=== PATIENT | male | born 1975 | race Caucasian/White ===

== ENCOUNTER 2022-01-11 10:15 | Observation (INO) | payer BC, SELFPAY ==
[2022-01-11] VITALS (9 sets, daily range): BP systolic 134–179; BP diastolic 107–125; PULSE 77–103; RESP 18–26; TEMP 36.6–36.8; O2SAT 96–99; BMI 25.1; BMI 25.4
--- NOTE | 2022-01-11 10:37 | NURSING ---
NO OLD EKGS
--- NOTE | 2022-01-11 10:51 | EKG12_ITS ---
Test Reason : CP Blood Pressure : / mmHG Vent. Rate : 082 BPM Atrial Rate : 082 BPM P-R Int : 170 ms QRS Dur : 102 ms QT Int : 404 ms P-R-T Axes : 051 000 042 degrees QTc Int : 472 ms Normal sinus rhythm Minimal voltage criteria for LVH, may be normal variant ( Babcock product ) Borderline ECG Confirmed by KAEL REAVES, MICHOACANO ([id number]), associate editor ELYSSA PULLIAM ([id number]) on 01/13/2022 12:50:22 PM Referred By: Pina Confirmed By:MICHOACANO SCRUGGS MD
[2022-01-11] MEDS: Aspirin 81 MG TAB.CHEW 324 MG PO (10:59)
--- NOTE | 2022-01-11 11:00 | RAD_ITS ---
STUDY: X-RAY CHEST REASON FOR EXAM: Male, 46 years old. Chest pain TECHNIQUE: Single AP portable view of the chest. COMPARISON: None. FINDINGS: EKG electrodes are seen. The lungs are clear and expanded. There is no demonstrated pleural abnormality. Normal size heart. Normal mediastinum and juan. Normal visualized pulmonary arteries. Normal visualized aortic arch and descending thoracic aorta. Normal visualized thoracic spine. Normal visualized ribs, clavicles, and shoulders. There is no demonstrated abnormality of the visualized soft tissue structures of the upper abdomen. RAD/Chest 1 View (Portable) IMPRESSION: Normal x-ray examination of the chest. Electronically Signed: Brayden Lo MD at 11:11 EDT ,
[2022-01-11 11:07] LABS: Absolute Lymphocyte Count 1.22 X10^3/uL (0.83-4.51); Absolute Neutrophil Count 3.8 X10^3/uL (2.0-7.7); Basophil# 0.04 X10^3/uL; Basophil% 0.7 % (0-1); Eosinophil# 0.27 X10^3/uL; Eosinophils% 4.5 % (0-5); Hematocrit 44.3 % (40-54); Hemoglobin 16.3 g/dL (13.0-16.5); Lymphocyte # 1.22 X10^3/ul (0.83-4.51); Lymphocyte % 20.3 % (19-41); Mean Corp Hgb Conc 36.8 g/dL (32-36); Mean Corpuscular Hgb 34.7 pg (27.0-32.0); Mean Corpuscular Volume 94.3 fL (80-94); Mean Platelet Vol. 12.1 fl (6.2-12.0); Monocyte# 0.71 X10^3/uL; Monocyte% 11.8 % (0-10); NRBC Flagged by Analyzer 0 % (0-5); Neutrophil # 3.75 X10^3/uL (2.7-7.7); Neutrophil % 62.4 % (47-70); Platelet Count 118 K/mm3 (150-450); RBC Distribution Width CV 15.2 % (11.6-14.6); RBC Distribution Width SD 51.3 fl (35.1-43.9)
[2022-01-11 11:32] LABS: Anion Gap 9 (5-15); BUN 12 mg/dL (7-18); BUN/Creat Ratio 12.3 RATIO (10-20); Calcium,Total 9.9 mg/dL (8.5-10.1); Chloride 101 mmol/L (98-107); Creatinine, Serum 0.97 mg/dL (0.70-1.30); EST Glomerular Filtration Rate 89 mL/min (>60); Est Glom Filt Rate - Afr Amer 108 mL/min (>60); Estimated Creatinine Clearance 112.99 ml/min; Glucose 129 mg/dL (74-106); Potassium 3.7 mmol/L (3.5-5.1); Sodium Level 135 mmol/L (136-145); Troponin-I HS (w/2H Reflex) 17 pg/mL (3.0-78.0)
--- NOTE | 2022-01-11 12:43 | EDS_ITS ---
HPI History of Present Illness Chief Complaint: Chest Pain Informant: patient Onset/Context/Timing Onset: Days Activity at onset: gradual Timing: Intermittent Quality: Positive for Tightness Location: Left Parasternal Current Severity: Mild Maximum Severity: Moderate Narrative Narrative: Patient presents secondary to intermittent chest pain. Has been having intermittent chest pain to the left chest over the past couple days. It is not necessarily worsened with exertion. He denies shortness of breath or diaphoresis. Patient states that he has been having trouble with lightheadedness and dizziness since August when he was diagnosed with bronchitis. He had an echocardiogram at the [facility] recently which was abnormal. He was referred to cardiology and has an appointment in January. He states he was told that if he develops chest pain he should present to the emergency room. I was able to get a copy of the patient's echocardiogram results. The left ventricle is severely dilated. EF is estimated to be 34%. The right ventricle is normal in size. [facility] Medical History HTN (hypertension) Home Medications amlodipine 10 mg tablet 1 tab PO DAILY 01/11/22 [History Last Taken Unknown] losartan 100 mg-hydrochlorothiazide 25 mg tablet 1 tab PO DAILY 01/11/22 [H istory Last Taken Unknown] metformin 500 mg tablet,extended release 24 hr 1 tab PO DAILY 01/11/22 [History Last Taken Unknown] metoprolol succinate 50 mg tablet,extended release 24 hr 1 tab PO DAILY 01/11/22 [History Last Taken Unknown] Allergy/AdvReac Type Severity Reaction Status Date / Time lisinopril Allergy Other Verified 01/11/22 10:18 Social History Smoking Status: Current every day smoker tobacco type: cigarettes ROS ROS ED Constitutional Constitutional ED: Denies chills or fever(s) Eyes Eyes: Denies change in vision or discharge from eye(s) ENT ENT ED: Denies discharge from eye(s), rhinorrhea or sore throat Cardiovascular Cardiovascular: Reports chest pain; Denies palpitations Respiratory/Chest Respiratory/Chest: Denies cough or dyspnea Gastrointestinal Gastrointestinal: Denies abdominal pain, diarrhea, nausea or vomiting Genitourinary Genitourinary ED: Denies difficulty urinating or dysuria Musculoskeletal Musculoskeletal: Denies back pain or extremity pain Integumentary Denies Abrasions or rash Neurologic Neurologic: Denies headache(s) or weakness Allergic/Immunologic Allergic/Immunologic ED: Denies lip swelling or urticaria EXAM Physical Exam Const Vital Signs: 01/11/22 10:16 01/11/22 10:33 01/11/22 10:51 Temperature 97.9 F Temperature Source Temporal Pulse Rate 96 Respiratory Rate 18 Respiratory Effort Normal Non-Labored Blood Pressure 179/116 H Blood Pressure Mean 137 Pulse Ox 99 Oxygen Delivery Method Room Air Room Air 01/11/22 11:16 Temperature Temperature Source Pulse Rate 84 Respiratory Rate 26 H Respiratory Effort Blood Pressure 146/112 H Blood Pressure Mean 123 Pulse Ox 96 Oxygen Delivery Method Room Air Positive well nourished and well developed General Appearance ED: well developed HEENT Reports normocephalic and head/scalp atraumatic Eyes PERRL and EOMs intact bilaterally Neck supple Chest Wall inspection of chest normal and palpation of chest normal Resp normal respiratory effort and clear to auscultation bilaterally Cardio regular rate and regular rhythm GI normal to inspection, nondistended, normoactive bowel sounds Palpation: soft Back/Spine no CVA tenderness Extremity normal to inspection Neuro oriented x3 and no sensory deficits noted Sensorium / Orientation: alert Motor Exam: strength 5/5 throughout Psych mental status grossly normal Skin no rashes or lesions noted Heart Score History: Slightly/Non-Suspicious ECG: Normal Age: </= 45 years Risk Factors: 1 or 2 Risk Factors Troponin: </= Normal Limit Score: 1 MDM MDM MDM Narrative Medical decision making narrative: Patient was given aspirin on arrival. Lab work, EKG, chest x-ray obtained. Lab Data Attestation: I reviewed the patient's lab results. Labs: Laboratory Results - last 24 hr 01/11/22 01/11/22 10:28 10:28 WBC 6.0 RBC 4.70 Hgb 16.3 Hct 44.3 MCV 94.3 H MCH 34.7 H MCHC 36.8 H RDW Std Deviation 51.3 H RDW Coeff of Mary Kate 15.2 H Plt Count 118 L MPV 12.1 H Immature Gran % (Auto) 0.300 Neut % (Auto) 62.4 Lymph % (Auto) 20.3 Sandoval % (Auto) 11.8 H Eos % (Auto) 4.5 Baso % (Auto) 0.7 Absolute Neuts (auto) 3.8 Absolute Lymphs (auto) 1.22 Nucleated RBC % 0 Sodium 135 L Potassium 3.7 Chloride 101 Carbon Dioxide 25.0 Anion Gap 9 BUN 12 Creatinine 0.97 Estim Creat Clear Calc 112.99 Est GFR (MDRD) Af Amer 108 Est GFR (MDRD) Non-Af 89 BUN/Creatinine Ratio 12.3 Glucose 129 H Calcium 9.9 Troponin I High Sens 17 Radiography Chest X-Ray - ED: 1 View, Read by ED Physician, Normal, Heart, Lungs and Mediastinum Diagnostic Testing: Clinical Impression(s) from Imaging Studies Chest X-Ray 01/11/22 11:00 IMPRESSION: Normal x-ray examination of the chest. Electronically Signed: Brayden Lo MD at 11:11 EDT , EKG Initial EKG: Attestation: I personally reviewed and interpreted this EKG as follows: Interpretation: Sinus Rhythm (Sinus 82 with no acute ischemia.) Treatment and Re-Evaluation Narrative: On repeat evaluation patient resting comfortably. Chest x-ray per my interpretation is unremarkable. Radiology interpretation reviewed. He EKG reveals no acute ischemia. Lab work unremarkable with a troponin of 17. Given the patient's symptoms and abnormal recent echocardiogram I did speak Dr. Sands. He feels the conservative route of treatment would be to admit the patient for cardiac cath. This would further identify whether his poor LV function is secondary to cardiac disease or nonischemic disease. Patient is in agreement with this plan and I will speak with the hospitalist. Discharge Plan Triage Chief Complaint: Chest Pain ED Provider: Cinthia Heller Dx/Rx/DC Orders Clinical Impression: Chest pain, Abnormal echocardiogram Prescriptions: No Action metoprolol succinate 50 mg tablet extended release 24 hr 1 tab PO DAILY Label Comments: TAKE 1 TABLET BY MOUTH EVERY DAY losartan-hydrochlorothiazide 100-25 mg tablet 1 tab PO DAILY Label Comments: TAKE 1 TABLET BY MOUTH EVERY DAY amlodipine 10 mg tablet 1 tab PO DAILY Label Comments: TAKE 1 TABLET BY MOUTH EVERY DAY metformin 500 mg tablet extended release 24 hr 1 tab PO DAILY Label Comments: TAKE 1 TABLET BY MOUTH EVERY DAY WITH BREAKFAST Primary Care Provider: Shamir Cha Referrals: Shamir Cha MD [Primary Care Provider] - Disposition Disposition: Acute Care Hospital [facility]
[2022-01-11 13:02] LABS: Reflex Troponin-HS? (from REC) Y
--- NOTE | 2022-01-11 13:09 | HP.PCM.HOS_ITS ---
[facility] - General General Date of Admission: 01/11/22 Date of Service: 01/11/22 Chief Complaint: chest pain. [facility] Narrative ELIZABETH LAU, is a 46 M who presents with a complaint of chest pain. Patient says he had been having intermittent chest pain for a few days prior to admission, with associated lightheadedness and dizziness. He was diagnosed wih bronchitis in August 2021, and subsequently had an echo as ordered by his PCP. He was told the echo was abnormal and he was referred to cardiology. The earliest appointment he got was in January 2022. He was however told by his PCP that if he developed chest pain, he should go to the ED. He subsequently started developing the above mentioned symptoms, so was came to the ED. He denied any palpitations, fever, chills, nausea, vomiting or diarrhea. Review of systems is otherwise negative. 2D echo showed EF of 34% and severely dilated LV, and RV was normal. [facility] Medical History HTN (hypertension) Home Medications amlodipine 10 mg tablet 1 tab PO DAILY 01/11/22 [History Last Taken Unknown] losartan 100 mg-hydrochlorothiazide 25 mg tablet 1 tab PO DAILY 01/11/22 [History Last Taken Unknown] metformin 500 mg tablet,extended release 24 hr 1 tab PO DAILY 01/11/22 [History Last Taken Unknown] metoprolol succinate 50 mg tablet,extended release 24 hr 1 tab PO DAILY 01/11/22 [History Last Taken Unknown] Allergy/AdvReac Type Severity Reaction Status Date / Time lisinopril Allergy Other Verified 01/11/22 10:18 Social History Smoking Status: Current every day smoker tobacco type: cigarettes ROS Review of Systems ROS Unobtainable: Denies due to encephalopathy Constitutional Constitutional: Denies anorexia, chills, fatigue, fever(s), malaise or weakness Eyes Eyes: Denies change in vision ENT HEENT: Denies dysphagia, headache(s), nasal congestion, nasal discharge or sinus pressure Cardiovascular Cardiovascular: Reports chest pain and lightheadedness; Denies dyspnea on exertion, edema, orthopnea, palpitations, paroxysmal nocturnal dyspnea, rapid heart rate or syncope Respiratory/Chest Respiratory/Chest: Denies cough, dyspnea, productive cough, shortness of breath at rest, shortness of breath with exertion or wheezing Gastrointestinal Gastrointestinal: Reports constipation; Denies abdominal pain, diarrhea, dyspepsia, nausea or vomiting Genitourinary Genitourinary: Denies burning urination or dysuria Musculoskeletal Musculoskeletal: Denies arthralgias Neurologic Neurologic: Denies confusion, dizziness, focal weakness, headache(s), seizure- like activity, syncope or tingling Psychiatric Psychiatric: Denies anxiety or depression Hematologic/Lymphatic Hematologic/Lymphatic: Denies anemia Vital Signs Vital Signs Vital Signs: 01/11/22 10:16 01/11/22 10:33 01/11/22 10:51 Temperature 97.9 F Temperature Source Temporal Pulse Rate 96 Respiratory Rate 18 Respiratory Effort Normal Non-Labored Blood Pressure 179/116 H Blood Pressure Mean 137 Pulse Ox 99 Oxygen Delivery Method Room Air Room Air 01/11/22 11:16 Temperature Temperature Source Pulse Rate 84 Respiratory Rate 26 H Respiratory Effort Blood Pressure 146/112 H Blood Pressure Mean 123 Pulse Ox 96 Oxygen Delivery Method Room Air Weight Weight: 196 lb Body Mass Index (BMI) 25.1 Physical Exam Const alert, oriented x3 and no apparent distress General Appearance: cooperative HEENT normocephalic, head/scalp atraumatic, hearing grossly normal bilaterally and moist oral mucous membranes Mouth: oral and palatal mucosa normal Eyes PERRL, EOMs intact bilaterally and conjunctivae normal Neck no lymphadenopathy and supple Resp normal respiratory effort, no retractions, no use of accessory muscles and clear to auscultation bilaterally Cardio regular rate, regular rhythm, S1 normal heart sound, S2 normal heart sound and no murmurs GI normal to inspection, nondistended, normoactive bowel sounds, soft to palpation, non-tender and non-distended Auscultation: hyperactive bowel sounds Extremity normal to inspection, full ROM and no clubbing, cyanosis or edema Neuro oriented x3, CN's II-XII intact bilaterally and moves all extremities Sensorium / Orientation: awake and alert Coordination / Balance: [id number] test normal Motor Exam: strength 5/5 throughout Psych affect normal Results Lab / Micro Data Result Diagrams: 01/11/22 10:28 01/11/22 10:28 Labs: Laboratory Results - last 24 hr 01/11/22 10:28: WBC 6.0, RBC 4.70, Hgb 16.3, Hct 44.3, MCV 94.3 H, MCH 34.7 H, MCHC 36.8 H, RDW Std Deviation 51.3 H, RDW Coeff of Mary Kate 15.2 H, Plt Count 118 L, MPV 12.1 H, Immature Gran % (Auto) 0.300, Neut % (Auto) 62.4, Lymph % (Auto) 20. 3, Dawson % (Auto) 11.8 H, Eos % (Auto) 4.5, Baso % (Auto) 0.7, Absolute Neuts (auto) 3.8, Absolute Lymphs (auto) 1.22, Nucleated RBC % 0 01/11/22 10:28: Sodium 135 L, Potassium 3.7, Chloride 101, Carbon Dioxide 25.0, Anion Gap 9, BUN 12, Creatinine 0.97, Estim Creat Clear Calc 112.99, Est GFR (MDRD) Af Amer 108, Est GFR (MDRD) Non-Af 89, BUN/Creatinine Ratio 12.3, Glucose 129 H, Calcium 9.9, Troponin I High Sens 17 Radiology Impression Chest X-Ray 01/11/22 11:00 IMPRESSION: Normal x-ray examination of the chest. Electronically Signed: Brayden Lo MD at 11:11 EDT , Assessment & Plan Assessment/Plan (1) Chest pain: PLAN: Plan #Chest pain to rule out ACS * admit to PCU with telemetry * cycle troponins * PO aspirin 81mg daily * 2D echo showed EF of 34% with severely dilated LV * check lipid panel and A1C * consult cardiology * #Hypertension: on amlodipine, losartan and HCTZ #Diabetes mellitus: hold metformin as he will likely have cardiac cath tomorrow. ISS. Accuchecks ACHS DVT prophylaxis: lovenox Code status; full code * Patient counseled extensively about different types of CODE STATUS including full code, DNR CCA and DNR CCA. Patient elects to be full code. * Total qcsc-mg-ybvr time 16 minutes. Charges/Coding Visit Charges OBSV E&M: 81709 Initial observation care L3 Procedures Hospitalists Procedures: 60627 Advncd Care Plan 30 Min
[2022-01-11 13:37] LABS: Troponin-I HS 18 pg/mL (3.0-78.0)
--- NOTE | 2022-01-11 13:41 | NURSING ---
PCU OBS KORAM CHEST PAIN
--- NOTE | 2022-01-11 14:59 | EKG12_ITS ---
Test Reason : cp admit Blood Pressure : / mmHG Vent. Rate : 077 BPM Atrial Rate : 077 BPM P-R Int : 172 ms QRS Dur : 092 ms QT Int : 404 ms P-R-T Axes : 056 012 030 degrees QTc Int : 457 ms Normal sinus rhythm Minimal voltage criteria for LVH, may be normal variant ( Sokolow-Lau ) Confirmed by KAEL REAVES, MICHOACANO ([id number]), video tape editor ELYSSA PULLIAM ([id number]) on 01/13/2022 12:52:36 PM Referred By: Balaji Confirmed By:MICHOACANO SCRUGGS MD
--- NOTE | 2022-01-11 15:34 | ECHOD_ITS ---
Reason For Study: Bicuspid AV, CMP Procedure This was a 2D Doppler, Color Flow transthoracic echocardiogram. Myocardial strain analysis was performed in this exam to aid in the assessment of cardiac function. The exam was of adequate technical quality. Exam performed portable in patient room. Left Ventricle Mildly dilated left ventricle. Moderate concentric left ventricular hypertrophy. Moderately severe global left ventricular systolic dysfunction. The estimated ejection fraction is 30 %. The global longitudinal strain = -13% (abnormal). Transmitral doppler flow suggestive of impaired relaxation of left ventricle. Right Ventricle Normal RV size. Normal systolic function. Atria Normal left atrium. Normal right atrium. No doppler evidence for ASD. Mitral Valve There is no mitral annular calcification. Mild diffuse mitral valve thickening. Trivial mitral valve insufficiency. Tricuspid Valve Normal tricuspid valve. Trivial tricuspid valve insufficiency. Unable to estimate RV systolic pressure due to insufficient tricuspid regurgitant envelope. Aortic Valve Bicuspid aortic valve. Mild focal aortic valve calcification. Trivial eccentric aortic valve insufficiency. Pulmonic Valve The pulmonic valve is not well visualized. Trivial pulmonic valve insufficiency. Great Vessels Moderately dilated aortic root. Pericardium/Pleural No pericardial effusion. MMode/2D Measurements & Calculations LVIDd: 5.1 cm IVSd: 1.4 cm LVOT diam: 2.7 cm LVIDs: 4.0 cm LVPWd: 1.5 cm LVOT area: 5.9 cm2 RVDd: 3.3 cm FS: 21.8 % Ao root diam: 5.0 cm LAV(MOD-bp): 23.3 ml LVAd ap4: 43.0 cm2 LAV(MOD-bp) Indexed: 10.7 ml/m2 LVLd ap4: 9.8 cm LAV(MOD-sp2): 25.8 ml EDV(MOD-sp4): 157.1 ml LAV(MOD-sp4): 19.2 ml EDV(sp4-el): 159.6 ml LVAs ap4: 30.7 cm2 LVLs ap4: 9.2 cm ESV(MOD-sp4): 87.2 ml ESV(sp4-el): 87.0 ml EF(MOD-sp4): 44.5 % EF(sp4-el): 45.5 % LVAd ap2: 36.4 cm2 SV(MOD-sp4): 69.9 ml SV(MOD-sp2): 34.3 ml LVLd ap2: 9.9 cm EDV(MOD-sp2): 114.0 ml EDV(sp2-el): 113.3 ml LVAs ap2: 29.2 cm2 LVLs ap2: 9.2 cm ESV(MOD-sp2): 79.7 ml ESV(sp2-el): 78.3 ml EF(MOD-sp2): 30.1 % SV(sp4-el): 72.6 ml LA dimension(2D): 3.0 cm LA A4 area: 10.0 cm2 RA A4 area: 12.6 cm2 Doppler Measurements & Calculations MV E max isidro: 43.6 cm/sec Lat Peak E' Isidro: 6.2 cm/sec Med Peak E' Isidro: 5.5 cm/sec MV A max isidro: 80.9 cm/sec E/E' lat: 7.1 E/E' med: 8.0 MV E/A: 0.54 Ao V2 max: 135.2 cm/sec LV V1 max: 83.0 cm/sec SV(LVOT): 83.7 ml Ao max P.3 mmHg LV V1 max P.8 mmHg Ao V2 mean: 102.0 cm/sec LV V1 mean P.6 mmHg Ao mean P.7 mmHg LV V1 mean: 58.4 cm/sec Ao V2 VTI: 24.3 cm LV V1 VTI: 14.2 cm FRANK(I,D): 3.4 cm2 FRANK(V,D): 3.6 cm2 PA V2 max: 75.3 cm/sec ECHO/Echo Complete Interpretation Summary Mildly dilated left ventricle. Moderately severe global left ventricular systolic dysfunction. The estimated ejection fraction is 30 %. Moderate concentric left ventricular hypertrophy. The global longitudinal strain = -13% (abnormal). Mild diffuse mitral valve thickening. Trivial mitral valve insufficiency. Trivial tricuspid valve insufficiency. Bicuspid aortic valve. Mild focal aortic valve calcification. Trivial eccentric aortic valve insufficiency. Trivial pulmonic valve insufficiency. Moderately dilated aortic root. Unable to estimate RV systolic pressure due to insufficient tricuspid regurgita nt envelope. Transmitral doppler flow suggestive of impaired relaxation of left ventricle Ordering Physician: Rohan Sands Referring Physician: MD Semaj Shamir Performed By: Rachael Mace, [facility]
--- NOTE | 2022-01-11 15:34 | CT_ITS ---
STUDY: CTA CHEST REASON FOR EXAM: Male, 46 years old. Chest pain. Aortic root dilatation. RADIATION DOSAGE (If Supplied By Facility): CTDIvol = ( 12.85 ) mGy, DLP = ( 581.41 ) mGycm TECHNIQUE: The examination was performed with the intravenous administration of IV 100mL Isovue-370. Post-processing of the angiographic images was performed, with multiplanar reformation and 3D reconstruction. Individualized dose optimization techniques were used for this CT. COMPARISON: Chest, 01/11/2022. FINDINGS: Normal enhancement of the main pulmonary artery and right and left pulmonary arteries. Normal enhancement of the bilateral peripheral pulmonary arteries. There is no demonstrated pulmonary embolism. The ascending thoracic aorta measures 5 x 4.9 cm at the level of the right pulmonary artery (image 60, series 2). This tapers into the arch. There is no demonstrated aortic dissection. Normal heart and pericardium. No coronary artery calcifications. Normal mediastinum. Normal hilar regions. Normal visualized trachea and bronchi. The lungs are well expanded. Normal pulmonary parenchyma. Normal pleura. Normal chest wall structures. Normal osseous structures. Hepatic steatosis. The upper abdomen is otherwise grossly normal. CT/CTA Chest W/WO Contrast IMPRESSION: 1. No evidence of pulmonary embolus. 2. Ascending thoracic aortic aneurysm with a maximum diameter of 5 x 4.9 cm. There is no dissection. 3. No acute pulmonary disease. 4. Fatty infiltration of the liver. Electronically Signed: Jason Cuellar DO at 16:48 EDT ,
--- NOTE | 2022-01-11 15:53 | CASEMGMT ---
According to the [place] website, the following are in-network tertiary facilities: [facility], [place], [facility], [facility], [facility], [facility], [facility], and . Amarilys DOZIER CM
[2022-01-11] MEDS: cloNIDine HCl 0.1 MG Tablet PO ×2 (16:19→22:29)
[2022-01-11 16:35] LABS: Troponin-I HS 17 pg/mL (3.0-78.0)
[2022-01-11 17:25] LABS: Bedside Glucose 131 mg/dL (74-106)
--- NOTE | 2022-01-11 17:51 | NURSING ---
Pt refused IPad teaching for heart cath procedure.
--- NOTE | 2022-01-11 19:02 | PCM.CONS.C ---
Assessment & Plan Assessment/Plan (1) Chest pain: PLAN: The patient presents with chest discomfort. The etiology is unclear as to whether this represents relationship to underlying cardiovascular disease. At the moment is unclear as to whether or not he has any history of CAD that would be contributing to his symptoms. He appears to have findings compatible with a dilated left ventricle with global left ventricular systolic dysfunction compatible with an underlying cardiomyopathy with moderately diminished LV systolic function/LVEF-unless there has been a change since the patient's procedure performed on 10-18-2021. He also appears to have findings on the thoracic ascending aortic aneurysm. Based upon his chest CTA he does not appear to have any obvious evidence of dissection. There is a possibility his chest discomfort is noncardiac in etiology. However based upon his clinical history and his objective findings it was thought reasonable that he undergo further evaluation of his cardiovascular status. This would include a diagnostic cardiac catheterization to evaluate his coronary arteries for evidence of CAD that would require additional evaluation and/or care. The procedure and risk were discussed with him. He is agreeable to this approach. In the interim he will continue medical therapy as deemed appropriate. (2) Dizziness: PLAN: The patient has a history of dizziness. Its unclear as to whether or not this is related to his already known cardiovascular history with respect to his left ventricular dilatation and dysfunction. He has not been found to have obvious cardiac dysrhythmias to explain it thus far. His blood pressure has been markedly elevated which may be a contributing factor to his symptoms. At the moment he will continue to be monitored. Attempts will be made to adjust his medication to bring his blood pressure under better control. He will continue noninvasive and invasive cardiovascular evaluation. (3) HTN (hypertension): PLAN: The patient's blood pressure is markedly elevated. Again this may be a contributing factor to his symptoms as well as to his left ventricular changes on the previous [facility] echocardiogram. He will continue medical therapy. A follow-up transthoracic echocardiogram is requested to reassess his left ventricular wall motion and systolic function. He may also need evaluation of his renal arteries with a renal artery duplex study to assist with evaluation of his hypertension. (4) Cardiomyopathy: PLAN: The patient is reported as having an abnormal [facility] transthoracic echocardiogram compatible with left ventricular dilatation and left ventricular systolic dysfunction with a diminished LVEF. That study was almost 3 months ago. The elevated blood pressure may be a contributing factor to this finding. However, other etiologies potentially tied into his history of bronchitis such as a viral etiology may be a possible etiology to explain his left ventricular changes. Based upon the echocardiogram report it does not appear he had hemodynamically significant valvular heart disease with respect to stenosis or insufficiency that should lead to his left ventricular findings. It is unclear as to how his left ventricle has changed since that time. At the present time he will undergo reassessment with a follow-up transthoracic echocardiogram and attempt to reevaluate his left ventricular wall motion and systolic function to help guide additional evaluation and care. (5) Bicuspid aortic valve: PLAN: He is reported as having a bicuspid aortic valve. The previous transthoracic echocardiogram did not report significant restriction or insufficiency. This will have to be taken into consideration with his overall cardiac evaluation care. (6) Thoracic aortic aneurysm: PLAN: The patient does have a thoracic ascending aortic aneurysm. This is been documented on his previous transthoracic echocardiogram and now a chest CTA. He will continue his noninvasive and invasive cardiovascular evaluation. However, he will need to be considered for a CT surgery consultation to establish a baseline to continue to follow his thoracic aorta with the need for future consideration for CT surgery intervention with aortic repair. Addt'l Comments The above was discussed and reviewed with the patient. The patient's case is also been discussed and reviewed with Dr. Heller of the [facility] emergency department staff. The aforementioned information has also been conveyed to Dr. Carpio of the [facility] staff. He was agreeable to this approach. This note was generated using a voice recognition system and there may be incorrect words, spelling or punctuation that were not noted when reviewing the office note prior to saving. HPI Consult Data Date of Consult: 01/11/22 HPI Narrative HPI Narrative: ELIZABETH LAU, is a 46 year old white male who presents presents for cardiac vascular consultation based upon a combination of concerns including chest discomfort superimposed upon a [facility] abnormal transthoracic echocardiogram dated 10-18-2021 demonstrating severe left ventricular dilatation, and LVEF 34%, a bicuspid aortic valve, and an ascending thoracic aortic aneurysm of 4.8 cm, as well as concerns of previous bronchitis followed by volume overload, as well as dizziness/lightheadedness, superimposed upon a history of hypertension. The patient states he had been in his usual state of health, with control of his blood pressure, prior to spring of this year when he developed bronchitis . He states following that time he has noted multiple concerns and issues. He states he required treatment with steroids. He notes that he gained approximately 30 to 40 pounds of fluid. His blood pressure elevated. He required adjustment of medications with respect to diuretics and then lost the aforementioned 30 to 40 pounds of fluid. He states his blood pressure has remained elevated. He states he is also had episodes where he has been dizzy and lightheaded. He denies any syncopal events. He was evaluated by his PCP and subsequently a transthoracic echocardiogram was performed. The findings are as noted with the addition of comments of trace MR/TR/AI/MD. He was then recommended for future outpatient cardiovascular consultation. In the meantime he states he has had episodes of chest discomfort which have been left-sided. His discomfort has not necessarily radiated. He does not been associated with acute nausea, emesis, diaphoresis, or respiratory difficulty. He states he was told if he had chest discomfort he should report to the emergency department for further evaluation. He has done so. In the emergency department his high-sensitivity troponin I level was negative. His ECG demonstrated sinus rhythm with findings potentially compatible with left ventricular hypertrophy. A chest x-ray was reported as unremarkable with respect to any acute radiologic changes. He was recommended for further inpatient evaluation and care. He denies any ongoing history of orthopnea or PND or ongoing peripheral pitting edema. He states his blood pressure is still a concern despite being on medical management. Since admission he has undergone additional evaluation. This included a chest CTA. The results are noted below. [facility] Medical History HTN (hypertension) Home Medications amlodipine 10 mg tablet 1 tab PO DAILY 01/11/22 [History Last Taken Unknown] losartan 100 mg-hydrochlorothiazide 25 mg tablet 1 tab PO DAILY 01/11/22 [History Last Taken Unknown] metformin 500 mg tablet,extended release 24 hr 1 tab PO DAILY 01/11/22 [History Last Taken Unknown] metoprolol succinate 50 mg tablet,extended release 24 hr 1 tab PO DAILY 01/11/22 [History Last Taken Unknown] Allergy/AdvReac Type Severity Reaction Status Date / Time lisinopril Allergy Other Verified 01/11/22 10:18 Social History Smoking Status: Current every day smoker tobacco type: cigarettes ROS Constitutional Constitutional: Reports as per HPI Eyes Eyes: Reports as per HPI ENT HEENT: Reports as per HPI Cardiovascular Cardiovascular: Reports chest pain, dizziness and edema Respiratory/Chest Respiratory/Chest: Reports as per HPI Gastrointestinal Gastrointestinal: Reports as per HPI Genitourinary Genitourinary: Reports as per HPI Musculoskeletal Musculoskeletal: Reports as per HPI Integumentary Integumentary: Reports as per HPI Neurologic Neurologic: Reports as per HPI Psychiatric Psychiatric: Reports as per HPI Physical Exam Const alert, oriented x3, no apparent distress and healthy appearing Orientation / Consciousness: awake HEENT normocephalic, head/scalp atraumatic and hearing grossly normal bilaterally Eyes PERRL, EOMs intact bilaterally, conjunctivae normal and no scleral icterus Neck full ROM, supple and no JVD Carotids: normal carotid upstroke Resp normal respiratory effort and clear to auscultation bilaterally Cardio regular rate, regular rhythm, S1 normal heart sound and S2 normal heart sound Heart Sounds: abnormal sounds and other Other Details: Positive early ejection click GI normal to inspection, nondistended, normoactive bowel sounds Extremity no pedal edema Skin no rashes or lesions noted Psych mental status grossly normal Risk Stratification Risk Stratification Applicable: No Objective Data Vital Signs: Vital Signs Temp Pulse Resp BP Pulse Ox O2 Del Method 98.3 F 90 18 159/113 H 96 Room Air 01/11/22 14:16 01/11/22 15:01 01/11/22 14:16 01/11/22 14:50 01/11/22 15:00 01/11/22 15:00 Oxygen Delivery Method Room Air Weight: 198 lb 10.184 oz Body Mass Index (BMI) 25.4 Lab / Micro Data Result Diagrams: 01/11/22 10:28 01/11/22 10:28 Labs: Laboratory Results - last 24 hr 01/11/22 10:28: WBC 6.0, RBC 4.70, Hgb 16.3, Hct 44.3, MCV 94.3 H, MCH 34.7 H, MCHC 36.8 H, RDW Std Deviation 51.3 H, RDW Coeff of Mary Kate 15.2 H, Plt Count 118 L, MPV 12.1 H, Immature Gran % (Auto) 0.300, Neut % (Auto) 62.4, Lymph % (Auto) 20.3, [place] % (Auto) 11.8 H, Eos % (Auto) 4.5, Baso % (Auto) 0.7, Absolute Neuts (auto) 3.8, Absolute Lymphs (auto) 1.22, Nucleated RBC % 0 01/11/22 10:28: Sodium 135 L, Potassium 3.7, Chloride 101, Carbon Dioxide 25.0, Anion Gap 9, BUN 12, Creatinine 0.97, Estim Creat Clear Calc 112.99, Est GFR (MDRD) Af Amer 108, Est GFR (MDRD) Non-Af 89, BUN/Creatinine Ratio 12.3, Glucose 129 H, Calcium 9.9, Troponin I High Sens 17 01/11/22 13:10: Troponin I High Sens 18 01/11/22 16:04: Troponin I High Sens 17 01/11/22 17:06: POC Glucose 131 H Rhythm Strip Rhythm Strip: Sinus Rhythm Cardiology Labs/Tests 01/11/22 10:28: WBC 6.0, RBC 4.70, Hgb 16.3, Hct 44.3, MCV 94.3 H, MCH 34.7 H, MCHC 36.8 H, Plt Count 118 L, MPV 12.1 H, Immature Gran % (Auto) 0.300, Neut % (Auto) 62.4, Lymph % (Auto) 20.3, [place] % (Auto) 11.8 H, Eos % (Auto) 4.5, Baso % (Auto) 0.7, Absolute Neuts (auto) 3.8, Nucleated RBC % 0 01/11/22 10:28: Sodium 135 L, Potassium 3.7, Chloride 101, Carbon Dioxide 25.0, Anion Gap 9, BUN 12, Creatinine 0.97, Est GFR (MDRD) Af Amer 108, Est GFR (MDRD) Non-Af 89, BUN/Creatinine Ratio 12.3, Glucose 129 H, Calcium 9.9 Rhythm: Sinus rhythm EKG: As noted above ECHO: As noted above Radiography Diagnostic Testing: Radiology Impression Chest X-Ray 01/11/22 11:00 IMPRESSION: Normal x-ray examination of the chest. Electronically Signed: Brayden Lo MD at 11:11 EDT , Chest CTA 01/11/22 15:34 IMPRESSION: 1. No evidence of pulmonary embolus. 2. Ascending thoracic aortic aneurysm with a maximum diameter of 5 x 4.9 cm. There is no dissection. 3. No acute pulmonary disease. 4. Fatty infiltration of the liver. Electronically Signed: Jason Cuellar DO at 16:48 EDT Reading Location ID and State: [facility] / [place] Tel [phone], Service support ,
--- NOTE | 2022-01-11 19:18 | RDU_ITS ---
Reason For Study: HTN Right Renal Artery Left Renal Artery Right renal artery ostium 58.5/25.3 Left renal artery ostium 53.7/23.6 RSV/EDV. PSV/EDV. Right renal artery proximal Left renal artery proximal PSV/EDV 58.5/24.1 PSV/EDV. 59.1/23.6 . Right renal artery mid 72.1/35 Left renal artery mid 59.1/23.6 PSV/EDV. PSV/EDV . Right renal artery distal 72.1/30.6 Left renal artery distal 74.9/33.5 PSV/EDV. PSV/EDV. Right RAR 0.89. Left RAR 0.93. Right Renal Parenchyma Left Renal Parenchyma Upper Pole Medula 31.1/13.9 Left upper pole medulla 30.2/13.7 PSV/EDV. PSV/EDV . Right upper pole medulla EDR 0.4 . Left upper pole medulla EDR 0.5 . Right upper pole medulla R.I. Left upper pole medulla R.I. 0.55 . 0.55 . UP Cortex 23.6/10.4 PSV/EDV. Upper Jose Cortx 19.2/9.3 PSV/EDV. Left upper pole cortex EDR 0.4 . Right upper pole cortex EDR 0.5 . Left upper pole cortex R.I. 0.56 . Right upper pole cortex R.I. 0.52 . Left lower Pole medulla 30.7/14.2 Right lower Pole medulla 29.6/13.5 PSV/EDV . PSV/EDV . Left lower pole medulla EDR 0.5 . Right lower pole medulla EDR 0.5 . Left lower pole medulla R.I. 0.54 . Right lower pole medulla R.I. Lower Pole Cortx 17/7.1 PSV/EDV. 0.54 . Left lower pole cortex EDR 0.4 . Lower Pole Cortex 17.8/8.3 PSV/EDV. Left lower pole cortex R.I. 0.58 . Right lower pole cortex EDR 0.5 . Left Renal Hilar Right lower pole cortex R.I. 0.53 . LT Hilar avg 53.5/27.4 PSV/EDV . Right Renal Hilar Left hilar acceleration time 70 Right Hilar avg 47.9/26.6 PSV/EDV. m/sec. Right hilar acceleration time 60 Left Renal Dimensions m/sec. Left kidney size 12.73 cm . Right Renal Dimensions Left cortical dimension 1.82 cm . Right kidney size 13.18 cm . Right cortical dimension 1.74 cm . Aorta Proximal abdominal aorta 1.65 x 1.65 cm . Proximal abdominal aorta peak systolic velocity is 80.9 cm/sec . Distal abdominal aorta 1.93 x 1.93 cm . Distal abdominal aorta peak systolic velocity is 73.6 cm/sec . VL/Renal Artery Duplex Ultrasound Interpretation Summary The right renal artery is patent with no evidence of stenosis. The right renal vein is patent. The right kidney is normal in size. The left renal artery is patent with no evidence of stenosis. The left renal vein is patent. The left kidney is normal in size. Ordering Physician: Rohan Sands Referring Physician: MD Semaj Shamir Performed By: Mylene Perkins RVT
[2022-01-12] VITALS (21 sets, daily range): BP systolic 106–163; BP diastolic 65–122; PULSE 68–102; RESP 16–18; TEMP 35.7–36.4; O2SAT 97–100
[2022-01-12 01:26] LABS: Bedside Glucose 101 mg/dL (74-106)
--- NOTE | 2022-01-12 05:55 | EKG12_ITS ---
Test Reason : am Blood Pressure : / mmHG Vent. Rate : 056 BPM Atrial Rate : 056 BPM P-R Int : 174 ms QRS Dur : 100 ms QT Int : 462 ms P-R-T Axes : 061 012 023 degrees QTc Int : 445 ms Sinus bradycardia Minimal voltage criteria for LVH, may be normal variant ( Sokolow-Lau ) Borderline ECG When compared with ECG of 11-JAN-2022 14:46, MANUAL COMPARISON REQUIRED, DATA IS UNCONFIRMED Confirmed by VINICIO REAVES, NESS ([id number]), advertising editor ELYSSA PULLIAM ([id number]) on 01/13/2022 12:58:40 PM Referred By: Confirmed By:NESS MOONEY MD
[2022-01-12] MEDS: Metoprolol(XL)Succ 50 MG Tablet PO ×2 (06:26→11:06)
[2022-01-12] MEDS: Losartan Potassium 100 MG Tablet PO (06:27)
[2022-01-12] MEDS: Aspirin 81 MG TAB.CHEW PO (06:27)
[2022-01-12] MEDS: amLODIPine 10 MG Tablet PO (06:27)
[2022-01-12] MEDS: cloNIDine HCl 0.1 MG Tablet PO ×2 (06:27→22:23)
[2022-01-12 06:43] LABS: Absolute Lymphocyte Count 0.97 X10^3/uL (0.83-4.51); Absolute Neutrophil Count 2.5 X10^3/uL (2.0-7.7); Basophil# 0.02 X10^3/uL; Basophil% 0.5 % (0-1); Eosinophil# 0.29 X10^3/uL; Eosinophils% 6.5 % (0-5); Hematocrit 41.8 % (40-54); Hemoglobin 14.7 g/dL (13.0-16.5); Lymphocyte # 0.97 X10^3/ul (0.83-4.51); Lymphocyte % 21.8 % (19-41); Mean Corp Hgb Conc 35.2 g/dL (32-36); Mean Corpuscular Hgb 33.9 pg (27.0-32.0); Mean Corpuscular Volume 96.3 fL (80-94); Monocyte# 0.67 X10^3/uL; Monocyte% 15.1 % (0-10); NRBC Flagged by Analyzer 0 % (0-5); Neutrophil # 2.46 X10^3/uL (2.7-7.7); Neutrophil % 55.4 % (47-70); POSITIVE COUNT YES; Platelet Count 94 K/mm3 (150-450); RBC Distribution Width CV 15.1 % (11.6-14.6); RBC Distribution Width SD 52.3 fl (35.1-43.9); Red Blood Count 4.34 M/mm3 (4.6-6.2); White Blood Count 4.4 K/mm3 (4.4-11.0)
[2022-01-12 06:51] LABS: Bedside Glucose 119 mg/dL (74-106)
[2022-01-12 07:23] LABS: AST(SGOT) 51 U/L (15-37); Alanine Aminotransfer ALT/SGPT 60 U/L (16-61); Albumin, Serum 3.9 g/dL (3.2-5.0); Alkaline Phosphatase 71 U/L (45-117); Anion Gap 4 (5-15); BUN 17 mg/dL (7-18); BUN/Creat Ratio 16.3 RATIO (10-20); Bilirubin, Direct 0.48 mg/dL (0.00-0.30); Calcium,Total 9.7 mg/dL (8.5-10.1); Chloride 101 mmol/L (98-107); Cholesterol 223 mg/dL (200); Creatinine, Serum 1.04 mg/dL (0.70-1.30); EST Glomerular Filtration Rate 82 mL/min (>60); Est Glom Filt Rate - Afr Amer 100 mL/min (>60); Estimated Creatinine Clearance 105.38 ml/min; Globulin 3.7 g/dL (2.2-4.2); Glucose 108 mg/dL (74-106); High Density Lipoprotein 54 mg/dL; Potassium 4.2 mmol/L (3.5-5.1); Protein, Total 7.6 g/dL (6.4-8.2); Sodium Level 136 mmol/L (136-145); Thyroid Stim Hormone (TSH) 4.39 uIU/mL (0.358-3.74); Triglycerides 131 mg/dL; Very Low Density Lipoprotein 26 mg/dL (5-40)
[2022-01-12] MEDS: hydrALAZINE 25 MG Tablet PO ×3 (08:00→22:23)
[2022-01-12] MEDS: 0.9% Normal Saline 1,000 ML 50 ML IV ×2 (08:00→10:10)
--- NOTE | 2022-01-12 08:00 | NURSING ---
This RN gave report to Lenny RN and Chandler RN in pt's room prior to heart cath.
[2022-01-12] MEDS: hydroCHLOROthiazide 25 MG Tablet PO (11:06)
--- NOTE | 2022-01-12 11:08 | PCM.PN.CARD ---
Subjective Subjective The patient has been resting comfortably. He has denied ongoing chest discomfort, shortness of breath/dyspnea, or dizziness/lightheadedness. Objective Data Vital Signs: Vital Signs Temp Pulse Resp BP Pulse Ox O2 Del Method 96.5 F L 69 18 127/88 H 100 Room Air 01/12/22 10:45 01/12/22 10:45 01/12/22 10:45 01/12/22 10:45 01/12/22 10:45 01/12/22 10:45 Oxygen Delivery Method Room Air Weight: 198 lb 10.184 oz Body Mass Index (BMI) 25.4 Intake & Output: Intake and Output for Last 24 Hours 01/10/22 01/11/22 01/12/22 23:59 23:59 23:59 Intake Total 150.83 / 150.83 Balance 150.83 / 150.83 Lab / Micro Data Result Diagrams: 01/12/22 06:12 01/12/22 06:12 Labs: Laboratory Results - last 24 hr 01/11/22 10:28: Sodium 135 L, Potassium 3.7, Chloride 101, Carbon Dioxide 25.0, Anion Gap 9, BUN 12, Creatinine 0.97, Estim Creat Clear Calc 112.99, Est GFR (MDRD) Af Amer 108, Est GFR (MDRD) Non-Af 89, BUN/Creatinine Ratio 12.3, Glucose 129 H, Calcium 9.9, Troponin I High Sens 17 01/11/22 13:10: Troponin I High Sens 18 01/11/22 16:04: Troponin I High Sens 17 01/11/22 17:06: POC Glucose 131 H 01/11/22 22:33: POC Glucose 101 01/12/22 06:12: WBC 4.4, RBC 4.34 L, Hgb 14.7, Hct 41.8, MCV 96.3 H, MCH 33.9 H, MCHC 35.2, RDW Std Deviation 52.3 H, RDW Coeff of Mary Kate 15.1 H, Plt Count 94 L, MPV 12.0, Immature Gran % (Auto) 0.700, Neut % (Auto) 55.4, Lymph % (Auto) 21.8, [place] % (Auto) 15.1 H, Eos % (Auto) 6.5 H, Baso % (Auto) 0.5, Absolute Neuts (auto) 2.5, Absolute Lymphs (auto) 0.97, Nucleated RBC % 0 01/12/22 06:12: Sodium 136, Potassium 4.2, Chloride 101, Carbon Dioxide 31.0, Anion Gap 4 L, BUN 17, Creatinine 1.04, Estim Creat Clear Calc 105.38, Est GFR (MDRD) Af Amer 100, Est GFR (MDRD) Non-Af 82, BUN/Creatinine Ratio 16.3, Glucose 108 H, Calcium 9.7, Total Bilirubin 2.00 H, Direct Bilirubin 0.48 H, AST 51 H, ALT 60, Alkaline Phosphatase 71, Total Protein 7.6, Albumin 3.9, Globulin 3.7, Triglycerides 131, Cholesterol 223 H, LDL Cholesterol 143 H, VLDL Cholesterol 26, HDL Cholesterol 54, TSH 4.39 H 01/12/22 06:25: POC Glucose 119 H Rhythm Strip Rhythm Strip: Sinus Rhythm Cardiology Labs/Tests 01/11/22 10:28: Sodium 135 L, Potassium 3.7, Chloride 101, Carbon Dioxide 25.0, Anion Gap 9, BUN 12, Creatinine 0.97, Est GFR (MDRD) Af Amer 108, Est GFR (MDRD) Non-Af 89, BUN/Creatinine Ratio 12.3, Glucose 129 H, Calcium 9.9 01/12/22 06:12: WBC 4.4, RBC 4.34 L, Hgb 14.7, Hct 41.8, MCV 96.3 H, MCH 33.9 H, MCHC 35.2, Plt Count 94 L, MPV 12.0, Immature Gran % (Auto) 0.700, Neut % (Auto) 55.4, Lymph % (Auto) 21.8, [place] % (Auto) 15.1 H, Eos % (Auto) 6.5 H, Baso % (Auto) 0.5, Absolute Neuts (auto) 2.5, Nucleated RBC % 0 01/12/22 06:12: Sodium 136, Potassium 4.2, Chloride 101, Carbon Dioxide 31.0, Anion Gap 4 L, BUN 17, Creatinine 1.04, Est GFR (MDRD) Af Amer 100, Est GFR (MDRD) Non-Af 82, BUN/Creatinine Ratio 16.3, Glucose 108 H, Calcium 9.7, Total Bilirubin 2.00 H, Direct Bilirubin 0.48 H, Triglycerides 131, Cholesterol 223 H, LDL Cholesterol 143 H, VLDL Cholesterol 26, HDL Cholesterol 54 Rhythm: Sinus rhythm ECHO: Left ventricle: Mildly dilated: Globally dysfunctional: Estimated LVEF 30% Bicuspid aortic valve: Trivial eccentric aortic valve insufficiency Aortic root: Dilated: 5.0 cm Please see official report Cardiac Cath: Preliminary evaluation: Coronary angiography: Angiographically normal-appearing coronary arteries Radiography Diagnostic Testing: Radiology Impression Chest X-Ray 01/11/22 11:00 IMPRESSION: Normal x-ray examination of the chest. Electronically Signed: Brayden Lo MD at 11:11 EDT , Chest CTA 01/11/22 15:34 IMPRESSION: 1. No evidence of pulmonary embolus. 2. Ascending thoracic aortic aneurysm with a maximum diameter of 5 x 4.9 cm. There is no dissection. 3. No acute pulmonary disease. 4. Fatty infiltration of the liver. Electronically Signed: Jason Cuellar DO at 16:48 EDT , Physical Exam Const alert, oriented x3 and no apparent distress Orientation / Consciousness: awake HEENT normocephalic, head/scalp atraumatic and hearing grossly normal bilaterally Eyes PERRL, EOMs intact bilaterally, conjunctivae normal and no scleral icterus Neck full ROM, supple and no JVD Carotids: normal carotid upstroke Resp normal respiratory effort and clear to auscultation bilaterally Cardio regular rate, regular rhythm, S1 normal heart sound and S2 normal heart sound Heart Sounds: click early and ejection GI normal to inspection, nondistended, normoactive bowel sounds Extremity no pedal edema Skin no rashes or lesions noted Psych mental status grossly normal Assessment & Plan Assessment/Plan (1) Chest pain: PLAN: The patient presents with chest discomfort. The patient has undergone further evaluation with a transthoracic echocardiogram, chest CTA, and a cardiac catheterization. The results of the transthoracic echocardiogram and cardiac catheterization are noted. The chest CTA did demonstrate findings compatible with the thoracic ascending aortic aneurysm-approximately 5.0 cm. At the present time the patient does not appear to have angiographically significant CAD to explain his symptoms. As his thoracic aorta is dilated with no evidence of complicating factors such as dissection, etc., it is not clear that that is the etiology of his chest discomfort. At the present time he will need to be monitored [place] for other etiologies of his discomfort as well. (2) Dizziness: PLAN: The patient has a history of dizziness. Its unclear as to whether or not this is related to his already known cardiovascular history with respect to his left ventricular dilatation and dysfunction. He has not been found to have obvious cardiac dysrhythmias to explain it thus far. His blood pressure has been markedly elevated which may be a contributing factor to his symptoms. He has been monitored with no new findings with respect to his cardiac rhythm. His blood pressure medicines are being adjusted to try and bring his blood pressure under better control. (3) HTN (hypertension): PLAN: The patient's blood pressure is markedly elevated. Again this may be a contributing factor to his symptoms as well as to his left ventricular changes on the previous [facility] echocardiogram. His medical therapy is being adjusted. (4) Cardiomyopathy: PLAN: The patient is reported as having an abnormal [facility] transthoracic echocardiogram compatible with left ventricular dilatation and left ventricular systolic dysfunction with a diminished LVEF. That study was almost 3 months ago. He has undergone follow-up transthoracic echocardiogram. It demonstrates findings similar to those of the [facility] transthoracic cardiogram performed in October of this year. He does not appear to have angiographically significant CAD to explain his cardiomyopathy. Again it raises concerns whether this may be hypertensive related or related to another event such as a viral mediated event when he had his bronchitis earlier this year. At the moment he will continue medical management. (5) Bicuspid aortic valve: PLAN: He does appear to have a bicuspid aortic valve. He does not appear to have significant restriction or insufficiency. This will need to be followed. (6) Thoracic aortic aneurysm: PLAN: The patient does have a thoracic ascending aortic aneurysm. This is been documented on his previous transthoracic echocardiogram and now a chest CTA. He will continue his noninvasive and invasive cardiovascular evaluation. He will be recommended for a referral to [facility] CT surgery to establish care as a patient to assist in ongoing evaluation and care of his ascending thoracic aortic aneurysm. Addt'l Comments The above was discussed and reviewed with the patient. He was agreeable to this approach. The aforementioned information was conveyed to Dr. Carpio of the [facility] hospitalist group.
--- NOTE | 2022-01-12 11:32 | CL.D_ITS ---
Patient Name: ELIZABETH LAU Study Date: 01/12/2022 Performing: Rohan Sands MD Ht: 74 inches 188 cm : 1975 Wt: 198.7 lbs 90 kg Age: 46 Gender: male BSA: 2.17 PROCEDURE(S) PERFORMED [id number])[facility] CLINICAL PROFILE AND INDICATIONS Indications: Worsening Angina, Suspected CAD, LV Dysfunction, Cardiomyopathy, Valvular Disease Heart Failure: None Stress/Imaging Stress/Image Study Performed: No Angina Classification Anginal Classification w/in 2 Weeks: CCS III CAD Presentations: Unstable angina. CONCLUSIONS Normal Left Ventricular End Diastolic Pressure (mild) Normal coronary arteries RECOMMENDATIONS Risk factor modification Medical therapy DESCRIPTION OF PROCEDURE The patient arrived to the procedure lab. The risks and benefits of the procedure as well as a full d escription of our services here and current unavailability of surgical backup were fully explained to the patient and/or their significant other prior to the catheterization. The Timeout was completed, verifying the correct patient and procedure. The patient's procedural site was prepped and draped in the usual fashion. Local anesthetic was given subcutaneously to right groin region with Lidocaine 2%. Using a modified Seldinger technique, arterial access was obtained via the right femoral artery, a 4 Fr sheath was inserted Left Coronary Artery selective angiography was performed in multiple views us ing a 4 Fr. JL5 catheter. Right Coronary Artery selective angiography was then performed in multiple views using a 4 Fr. JR4 catheter. LV to AO pullback pressures were then recorded.The arterial sheath was pulled and manual compression applied until hemostasis is achieved. CORONARY ANGIOGRAPHY DOMINANCE: Co- Dominant LEFT HEART ASSESSMENT Left Ventricular Ejection Fraction: Not assessed Elevated Left Ventricular End Diastolic Pressure (mild) LVEDP: 14 mmHg LEFT MAIN: Angiographically normal LEFT ANTERIOR DESCENDING ARTERY: Angiographically normal CIRCUMFLEX ARTERY: Angiographically normal RIGHT CORONARY ARTERY: Angiographically normal COMPLICATIONS No Complications PROCEDURE MEDICATIONS Versed 1 mg IV Versed 1 mg IV Oxygen: 2 L/min via nasal cannula SUMMARY OF HEMODYNAMIC DATA Time AIR REST ECG 08:44:22 AO 127/91 (109) SA 09:25:33 LV 146/-4, 12 09:39:57 LV 142/-3, 14 09:40:03 LVp 140/-7, 12 09:40:08 AOp 138/86 (105) 09:40:13 Signed By Rohan Sands MD On 01/12/2022 11:31:37 Rohan Sands MD
[2022-01-12 11:35] LABS: Bedside Glucose 143 mg/dL (74-106)
--- NOTE | 2022-01-12 12:31 | PN.HOSP_ITS ---
Subjective Subjective Patient seen and examined. He had no active complaints overnight. He had cardiac cath today which showed normal coronary arteries. Review of systems is otherwise negative. Objective Data Objective Data Vital Signs: Vital Signs Temp Pulse Resp BP Pulse Ox O2 Del Method 96.7 F L 78 18 118/103 H 98 Room Air 01/12/22 11:30 01/12/22 11:30 01/12/22 11:30 01/12/22 11:30 01/12/22 11:30 01/12/22 11:30 Oxygen Delivery Method Room Air Weight: 198 lb 10.184 oz Body Mass Index (BMI) 25.4 Intake & Output: Intake and Output for Last 24 Hours 01/10/22 01/11/22 01/12/22 23:59 23:59 23:59 Intake Total 150.83 / 150.83 Balance 150.83 / 150.83 Lab / Micro Data Result Diagrams: 01/12/22 06:12 01/12/22 06:12 Labs: Laboratory Results - last 24 hr 01/11/22 13:10: Troponin I High Sens 18 01/11/22 16:04: Troponin I High Sens 17 01/11/22 17:06: POC Glucose 131 H 01/11/22 22:33: POC Glucose 101 01/12/22 06:12: WBC 4.4, RBC 4.34 L, Hgb 14.7, Hct 41.8, MCV 96.3 H, MCH 33.9 H, MCHC 35.2, RDW Std Deviation 52.3 H, RDW Coeff of Mary Kate 15.1 H, Plt Count 94 L, MPV 12.0, Immature Gran % (Auto) 0.700, Neut % (Auto) 55.4, Lymph % (Auto) 21.8, [place] % (Auto) 15.1 H, Eos % (Auto) 6.5 H, Baso % (Auto) 0.5, Absolute Neuts (auto) 2.5, Absolute Lymphs (auto) 0.97, Nucleated RBC % 0 01/12/22 06:12: Sodium 136, Potassium 4.2, Chloride 101, Carbon Dioxide 31.0, Anion Gap 4 L, BUN 17, Creatinine 1.04, Estim Creat Clear Calc 105.38, Est GFR (MDRD) Af Amer 100, Est GFR (MDRD) Non-Af 82, BUN/Creatinine Ratio 16.3, Glucose 108 H, Calcium 9.7, Total Bilirubin 2.00 H, Direct Bilirubin 0.48 H, AST 51 H, ALT 60, Alkaline Phosphatase 71, Total Protein 7.6, Albumin 3.9, Globulin 3.7, Triglycerides 131, Cholesterol 223 H, LDL Cholesterol 143 H, VLDL Cholesterol 26, HDL Cholesterol 54, TSH 4.39 H 01/12/22 06:25: POC Glucose 119 H 01/12/22 11:09: POC Glucose 143 H Radiography Diagnostic Testing: Radiology Impression Chest CTA 01/11/22 15:34 IMPRESSION: 1. No evidence of pulmonary embolus. 2. Ascending thoracic aortic aneurysm with a maximum diameter of 5 x 4.9 cm. There is no dissection. 3. No acute pulmonary disease. 4. Fatty infiltration of the liver. Electronically Signed: Jason Cuellar DO at 16:48 EDT Reading Location ID and State: [address] [place] [address] Tel [phone], Service support , Rhythm Strip Rhythm Strip: Sinus Rhythm Physical Exam Const alert, oriented x3 and no apparent distress General Appearance: cooperative HEENT normocephalic, head/scalp atraumatic, hearing grossly normal bilaterally and moist oral mucous membranes Eyes PERRL, EOMs intact bilaterally and conjunctivae normal Neck no lymphadenopathy and supple Resp normal respiratory effort, no retractions, no use of accessory muscles and clear to auscultation bilaterally Cardio regular rate, regular rhythm, S1 normal heart sound, S2 normal heart sound and no murmurs GI normal to inspection, nondistended, normoactive bowel sounds, soft to palpation, non-tender and non-distended Auscultation: hyperactive bowel sounds Extremity normal to inspection, full ROM and no clubbing, cyanosis or edema Neuro oriented x3, CN's II-XII intact bilaterally and moves all extremities Sensorium / Orientation: awake and alert Coordination / Balance: [id number] test normal Motor Exam: strength 5/5 throughout Psych affect normal Assessment & Plan Assessment/Plan (1) Chest pain: PLAN: Plan #Chest pain due to nonischemic cardiomyopathy * he had cardiac cath today which showed normal coronary arteries * on PO aspirin 81mg daily * repeat 2D echo here showed moderatre LV hypertrophy and EF of 30% with impaired relaxation of left ventricle * cardiology on board * on aspirin and high intensity statin * * #Hypertension: on amlodipine, losartan and HCTZ; metoprolol 50mg daily added on as well as hydralazine #Diabetes mellitus: resume metformin tomorrow; was held o/a of cardiac cath. ISS. Accuchecks ACHS DVT prophylaxis: lovenox Code status; full code * Disposition: for likely DC tomorrow Charges/Coding Visit Charges OBSV E&M: 04604 Subsequent observation care L2
--- NOTE | 2022-01-12 14:11 | NURSING ---
Pt up to ambulated in hallway post heart cath. No signs of bleeding, hematoma or complications to cath site. Tolerated well.
[2022-01-12 16:51] LABS: Bedside Glucose 98 mg/dL (74-106)
[2022-01-13] VITALS (7 sets, daily range): BP systolic 101–122; BP diastolic 74–95; PULSE 64–76; RESP 12–18; TEMP 35.6–36.6; O2SAT 98–100
[2022-01-13 00:10] LABS: Bedside Glucose 87 mg/dL (74-106)
[2022-01-13 05:44] LABS: Absolute Lymphocyte Count 1.27 X10^3/uL (0.83-4.51); Absolute Neutrophil Count 2.3 X10^3/uL (2.0-7.7); Basophil# 0.02 X10^3/uL; Basophil% 0.4 % (0-1); Eosinophils% 6.6 % (0-5); Hematocrit 41.3 % (40-54); Hemoglobin 14.5 g/dL (13.0-16.5); Lymphocyte # 1.27 X10^3/ul (0.83-4.51); Lymphocyte % 27.9 % (19-41); Mean Corp Hgb Conc 35.1 g/dL (32-36); Mean Corpuscular Volume 96.9 fL (80-94); Mean Platelet Vol. 12.7 fl (6.2-12.0); Monocyte# 0.63 X10^3/uL; Monocyte% 13.8 % (0-10); NRBC Flagged by Analyzer 0 % (0-5); Neutrophil # 2.31 X10^3/uL (2.7-7.7); Neutrophil % 50.6 % (47-70); POSITIVE COUNT YES; Platelet Count 80 K/mm3 (150-450); RBC Distribution Width CV 15.3 % (11.6-14.6); RBC Distribution Width SD 53.2 fl (35.1-43.9); Red Blood Count 4.26 M/mm3 (4.6-6.2); White Blood Count 4.6 K/mm3 (4.4-11.0)
[2022-01-13 06:07] LABS: Anion Gap 6 (5-15); BUN 22 mg/dL (7-18); BUN/Creat Ratio 21.2 RATIO (10-20); Chloride 101 mmol/L (98-107); Creatinine, Serum 1.04 mg/dL (0.70-1.30); EST Glomerular Filtration Rate 82 mL/min (>60); Est Glom Filt Rate - Afr Amer 100 mL/min (>60); Estimated Creatinine Clearance 105.38 ml/min; Glucose 112 mg/dL (74-106); Potassium 3.8 mmol/L (3.5-5.1); Sodium Level 137 mmol/L (136-145)
[2022-01-13 06:09] LABS: Partial Thromboplast Time 30.8 Seconds (24.1-36.2); Prothrombin Time (Protime)PT. 13.2 SECONDS (11.7-14.9)
[2022-01-13] MEDS: hydrALAZINE 25 MG Tablet PO (06:27)
--- NOTE | 2022-01-13 08:31 | PCM.PN.CARD ---
Subjective Subjective The patient is awake and alert. He states he feels better. He denies any ongoing acute symptoms. Objective Data Vital Signs: Vital Signs Temp Pulse Resp BP Pulse Ox O2 Del Method 96.1 F L 75 18 114/95 H 98 Room Air 01/13/22 06:22 01/13/22 07:42 01/13/22 06:22 01/13/22 06:27 01/13/22 06:47 01/13/22 06:47 Oxygen Delivery Method Room Air Weight: 198 lb 10.184 oz Body Mass Index (BMI) 25.4 Intake & Output: Intake and Output for Last 24 Hours 01/11/22 01/12/22 01/13/22 23:59 23:59 23:59 Intake Total 348.33 / 348.33 Balance 348.33 / 348.33 Lab / Micro Data Result Diagrams: 01/13/22 04:21 01/13/22 04:21 Labs: Laboratory Results - last 24 hr 01/12/22 11:09: POC Glucose 143 H 01/12/22 16:33: POC Glucose 98 01/12/22 22:13: POC Glucose 87 01/13/22 04:21: WBC 4.6, RBC 4.26 L, Hgb 14.5, Hct 41.3, MCV 96.9 H, MCH 34.0 H, MCHC 35.1, RDW Std Deviation 53.2 H, RDW Coeff of Mary Kate 15.3 H, Plt Count 80 L, MPV 12.7 H, Immature Gran % (Auto) 0.700, Neut % (Auto) 50.6, Lymph % (Auto) 27.9, [place] % (Auto) 13.8 H, Eos % (Auto) 6.6 H, Baso % (Auto) 0.4, Absolute Neuts (auto) 2.3, Absolute Lymphs (auto) 1.27, Nucleated RBC % 0 01/13/22 04:21: Sodium 137, Potassium 3.8, Chloride 101, Carbon Dioxide 30.0, Anion Gap 6, BUN 22 H, Creatinine 1.04, Estim Creat Clear Calc 105.38, Est GFR (MDRD) Af Amer 100, Est GFR (MDRD) Non-Af 82, BUN/Creatinine Ratio 21.2 H, Glucose 112 H, Calcium 10.0 01/13/22 04:21: PT 13.2, INR 1.0, APTT 30.8 Rhythm Strip Rhythm Strip: Sinus Rhythm Cardiology Labs/Tests 01/13/22 04:21: WBC 4.6, RBC 4.26 L, Hgb 14.5, Hct 41.3, MCV 96.9 H, MCH 34.0 H, MCHC 35.1, Plt Count 80 L, MPV 12.7 H, Immature Gran % (Auto) 0.700, Neut % (Auto) 50.6, Lymph % (Auto) 27.9, [place] % (Auto) 13.8 H, Eos % (Auto) 6.6 H, Baso % (Auto) 0.4, Absolute Neuts (auto) 2.3, Nucleated RBC % 0 01/13/22 04:21: Sodium 137, Potassium 3.8, Chloride 101, Carbon Dioxide 30.0, Anion Gap 6, BUN 22 H, Creatinine 1.04, Est GFR (MDRD) Af Amer 100, Est GFR (MDRD) Non-Af 82, BUN/Creatinine Ratio 21.2 H, Glucose 112 H, Calcium 10.0 01/13/22 04:21: PT 13.2, INR 1.0, APTT 30.8 Rhythm: Sinus rhythm Radiography Diagnostic Testing: Radiology Impression Renal Artery Duplex 01/11/22 19:18 Interpretation Summary The right renal artery is patent with no evidence of stenosis. The right renal vein is patent. The right kidney is normal in size. The left renal artery is patent with no evidence of stenosis. The left renal vein is patent. The left kidney is normal in size. Ordering Physician: Rohan Sands Referring Physician: MD Semaj Shamir Performed By: Mylene Perkins RVT Physical Exam Const alert, oriented x3 and no apparent distress Orientation / Consciousness: awake HEENT normocephalic, head/scalp atraumatic and hearing grossly normal bilaterally Eyes PERRL, EOMs intact bilaterally, conjunctivae normal and no scleral icterus Neck full ROM, supple and no JVD Carotids: normal carotid upstroke Resp normal respiratory effort and clear to auscultation bilaterally Cardio regular rate, regular rhythm, S1 normal heart sound and S2 normal heart sound Heart Sounds: click early and ejection GI normal to inspection, nondistended, normoactive bowel sounds Extremity no pedal edema Extremity Narrative: Right inguinal area: Femoral pulses: 2+/4+: No bruit: No hematoma Skin no rashes or lesions noted Psych mental status grossly normal Assessment & Plan Assessment/Plan (1) Chest pain: PLAN: The patient presents with chest discomfort. The patient has undergone further evaluation with a transthoracic echocardiogram, chest CTA, and a cardiac catheterization. The results of the transthoracic echocardiogram and cardiac catheterization are noted. The chest CTA did demonstrate findings compatible with the thoracic ascending aortic aneurysm-approximately 5.0 cm. At the present time the patient does not appear to have angiographically significant CAD to explain his symptoms. As his thoracic aorta is dilated with no evidence of complicating factors such as dissection, etc., it is not clear that that is the etiology of his chest discomfort. (2) Dizziness: PLAN: The patient has a history of dizziness. Its unclear as to whether or not this is related to his already known cardiovascular history with respect to his left ventricular dilatation and dysfunction. He has not been found to have obvious cardiac dysrhythmias to explain it thus far. His blood pressure has been markedly elevated which may be a contributing factor to his symptoms. He has been monitored with no new findings with respect to his cardiac rhythm. His blood pressure medicines are being adjusted to try and bring his blood pressure under better control. (3) HTN (hypertension): PLAN: The patient's blood pressure is markedly elevated. Again this may be a contributing factor to his symptoms as well as to his left ventricular changes on the previous [facility] echocardiogram. His medical therapy is being adjusted. His blood pressures do appear as if they are coming under better control. (4) Cardiomyopathy: PLAN: The patient is reported as having an abnormal [facility] transthoracic echocardiogram compatible with left ventricular dilatation and left ventricular systolic dysfunction with a diminished LVEF. That study was almost 3 months ago. He has undergone follow-up transthoracic echocardiogram. It demonstrates findings similar to those of the [facility] transthoracic cardiogram performed in October of this year. He does not appear to have angiographically significant CAD to explain his cardiomyopathy. Again it raises concerns whether this may be hypertensive related or related to another event such as a viral mediated event when he had his bronchitis earlier this year. At the moment he will continue medical management. (5) Bicuspid aortic valve: PLAN: He does appear to have a bicuspid aortic valve. He does not appear to have significant restriction or insufficiency. This will need to be followed. (6) Thoracic aortic aneurysm: PLAN: The patient does have a thoracic ascending aortic aneurysm. This is been documented on his previous transthoracic echocardiogram and now a chest CTA. He will continue his noninvasive and invasive cardiovascular evaluation. He will be recommended for a referral to [facility] CT surgery to establish care as a patient to assist in ongoing evaluation and care of his ascending thoracic aortic aneurysm. Addt'l Comments Overall, the patient appears to be symptomatically stable at this time and his blood pressures appear to be improving. He will need continued outpatient cardiovascular follow-up. He will be referred to [facility] CT surgery for baseline evaluation with respect to his ascending thoracic aortic aneurysm, etc. The above was discussed with him and he was agreeable to this approach.
[2022-01-13 08:50] LABS: Bedside Glucose 132 mg/dL (74-106)
[2022-01-13] MEDS: Metoprolol(XL)Succ 100 MG Tablet PO (08:59)
[2022-01-13] MEDS: Aspirin 81 MG TAB.CHEW PO (09:00)
--- NOTE | 2022-01-13 09:50 | DS.PCM_ITS ---
Providers Date of Admission: 01/11/22 Primary Care Physician: Dr. Shamir Cha MD Consultations 01/11/22 14:12 Consult: Cardiology Routine Consulting Provider: Rohan Sands Reason for Consult: chest pain EMERGENT Consult: No MD Notified: Yes Date Notified: 01/11/22 Time Notified: 13:31 Method of Notification: Text Reason For Visit: CHEST PAIN Diagnosis Discharge Diagnosis (1) Chest pain: Status: Acute Code(s): R07.9 - Chest pain, unspecified (2) Dizziness: Status: Acute Code(s): R42 - Dizziness and giddiness (3) HTN (hypertension): Status: Chronic Code(s): I10 - Essential (primary) hypertension (4) Cardiomyopathy: Status: Acute Code(s): I42.9 - Cardiomyopathy, unspecified (5) Bicuspid aortic valve: Status: Acute Code(s): Q23.1 - Congenital insufficiency of aortic valve (6) Thoracic aortic aneurysm: Status: Acute Code(s): I71.2 - Thoracic aortic aneurysm, without rupture Plan #Chest pain due to nonischemic cardiomyopathy * he had cardiac cath today which showed normal coronary arteries * on PO aspirin 81mg daily * repeat 2D echo here showed moderatre LV hypertrophy and EF of 30% with impaired relaxation of left ventricle * cardiology on board * on aspirin and high intensity statin * * #Hypertension: on amlodipine, losartan and HCTZ; metoprolol 50mg daily added on as well as hydralazine #Diabetes mellitus: resume metformin tomorrow; was held o/a of cardiac cath. ISS. Accuchecks ACHS DVT prophylaxis: lovenox Code status; full code * Disposition: for likely DC tomorrow Medications at Discharge Home Medications amlodipine 10 mg tablet 1 tab PO DAILY 01/11/22 losartan 100 mg-hydrochlorothiazide 25 mg tablet 1 tab PO DAILY 01/11/22 metformin 500 mg tablet,extended release 24 hr 1 tab PO DAILY 01/11/22 aspirin 81 mg chewable tablet 81 mg PO DAILY@0800 #30 tabs 01/13/22 hydralazine 25 mg tablet 25 mg PO TID #90 tabs 01/13/22 metoprolol succinate 100 mg tablet,extended release 24 hr 100 mg PO DAILY #30 tabs 01/13/22 Hospital Course Operations None Procedures 2-D Echocardiogram and Cardiac catheterization Summary of Care Provided Minutes Spent on Discharge: 45 Hospital Course: ELIZABETH LAU, is a 46 M who presents with a complaint of chest pain. Patient says he had been having intermittent chest pain for a few days prior to admission, with associated lightheadedness and dizziness. He was diagnosed wih bronchitis in August 2021, and subsequently had an echo as ordered by his PCP. He was told the echo was abnormal and he was referred to cardiology. The earliest appointment he got was in January 2022. He was however told by his PCP that if he developed chest pain, he should go to the ED. He subsequently started developing the above mentioned symptoms, so was came to the ED. He denied any palpitations, fever, chills, nausea, vomiting or diarrhea. Review of systems is otherwise nega tive. 2D echo showed EF of 34% and severely dilated LV, and RV was normal. He was admitted to be managed for chest pain to rule out ACS. Cardiology was consulted. He had a 2D echo which showed EF of 30% with moderate LV hypertrophy and impaired relaxation of the left ventricle. he had cardiac cath which showed clean coronaries. He also had a CTA chest which showed no evidence of PE but showed an ascending thoracic aortic aneurysm with a maximum diameter of 5 x 4.9cm with no dissection and no acute pulmonary disease, as well as fatty infiltration of the liver. He also had a duplex of hte renal arteries which showed bilateral patent renal arteries. His BP meds were adjusted and he was discharged on PO amlodipine, hydralazine, clonidine and metoprolol as well as HCTZ and losartan. He is to follow up with his PCP and cardiology as well as cardiothoracic surgery at [facility]. Patient seen and examined prior to discharge. She has no active complaints and had an uneventful night. Review of systems is otherwise negative. Labs and vitals reviewed. Home meds reviewed and reconciled. Physical Exam Const alert, oriented x3 and no apparent distress General Appearance: cooperative and comfortable Orientation / Consciousness: awake Exam Limitations: no limitations HEENT normocephalic, head/scalp atraumatic, hearing grossly normal bilaterally and moist oral mucous membranes Mouth: oral and palatal mucosa normal Eyes PERRL, EOMs intact bilaterally and conjunctivae normal Neck no lymphadenopathy, supple and no JVD Resp normal respiratory effort, no retractions, no use of accessory muscles and clear to auscultation bilaterally Cardio regular rate, regular rhythm, S1 normal heart sound, S2 normal heart sound and no murmurs GI normal to inspection, nondistended, normoactive bowel sounds, soft to palpation, non-tender and non-distended Auscultation: hyperactive bowel sounds Extremity normal to inspection, full ROM and no clubbing, cyanosis or edema Skin no rashes or lesions noted Neuro oriented x3, CN's II-XII intact bilaterally and moves all extremities Sensorium / Orientation: awake and alert Coordination / Balance: [id number] test normal Motor Exam: strength 5/5 throughout Psych affect normal Weight / BMI Weight Weight: 198 lb 10.184 oz Body Mass Index (BMI) 25.4 ABG / Lab / Microbiology Data Result Diagrams: 01/13/22 04:21 01/13/22 04:21 Laboratory: Laboratory Results - last 24 hr 01/12/22 11:09: POC Glucose 143 H 01/12/22 16:33: POC Glucose 98 01/12/22 22:13: POC Glucose 87 01/13/22 04:21: WBC 4.6, RBC 4.26 L, Hgb 14.5, Hct 41.3, MCV 96.9 H, MCH 34.0 H, MCHC 35.1, RDW Std Deviation 53.2 H, RDW Coeff of [place] 15.3 H, Plt Count 80 L, MPV 12.7 H, Immature Gran % (Auto) 0.700, Neut % (Auto) 50.6, Lymph % (Auto) 27.9, [place] % (Auto) 13.8 H, Eos % (Auto) 6.6 H, Baso % (Auto) 0.4, Absolute Neuts (auto) 2.3, Absolute Lymphs (auto) 1.27, Nucleated RBC % 0 01/13/22 04:21: Sodium 137, Potassium 3.8, Chloride 101, Carbon Dioxide 30.0, Anion Gap 6, BUN 22 H, Creatinine 1.04, Estim Creat Clear Calc 105.38, Est GFR (MDRD) Af Amer 100, Est GFR (MDRD) Non-Af 82, BUN/Creatinine Ratio 21.2 H, Glucose 112 H, Calcium 10.0 01/13/22 04:21: PT 13.2, INR 1.0, APTT 30.8 01/13/22 06:26: POC Glucose 132 H Radiography Diagnostic Testing: Radiology Impression Renal Artery Duplex 01/11/22 19:18 Interpretation Summary The right renal artery is patent with no evidence of stenosis. The right renal vein is patent. The right kidney is normal in size. The left renal artery is patent with no evidence of stenosis. The left renal vein is patent. The left kidney is normal in size. Ordering Physician: Rohan Sands Referring Physician: MD Shamir Cha Performed By: Mylene Perkins RVT D/C Instructions Discharge Diet: Low fat / Low cholesterol Discharge Activity: Return to Normal Activity Weight Bearing Status: Weight bearing as tolerated Call your doctor if you observe: Fever of 101 or Higher, Shortness of breath, Dizziness, Swelling in the ankles, Chest pain and Increased palpitations (irregular heartbeat) Meaningful Use Info Meaningful Use Diagnoses (Choose all that apply): None applicable Discharge Plan Admission Admit Date/Time: 01/11/22 13:29 Primary Reason for Your Visit: chest pain Attending Provider: Christina Carpio Primary Care Provider: Shamir Cha Consulting Providers: Rohan Sands Instructions Patient Instructions: ED Angina, Stable Additional Instructions / Restrictions: to follow up with CT surgery for thoracic aneurysm Discharge Orders/Prescriptions Prescriptions: New metoprolol succinate 100 mg Tablet Extended Release 24 Hr 100 mg PO DAILY Qty: 30 2RF aspirin 81 mg Tablet,Chewable 81 mg PO DAILY@0800 Qty: 30 2RF hydralazine 25 mg Tablet 25 mg PO TID Qty: 90 2RF Continued losartan-hydrochlorothiazide 100-25 mg tablet 1 tab PO DAILY Label Comments: TAKE 1 TABLET BY MOUTH EVERY DAY amlodipine 10 mg tablet 1 tab PO DAILY Label Comments: TAKE 1 TABLET BY MOUTH EVERY DAY metformin 500 mg tablet extended release 24 hr 1 tab PO DAILY Label Comments: TAKE 1 TABLET BY MOUTH EVERY DAY WITH BREAKFAST Discontinued metoprolol succinate 50 mg tablet extended release 24 hr 1 tab PO DAILY Label Comments: TAKE 1 TABLET BY MOUTH EVERY DAY Referrals / Follow Up: Shamir Cha MD [Primary Care Provider] - Within 2 Weeks Rohan Sands MD [Med Staff - Active Staff] - Within 2 Weeks Disposition Disposition (needs filled in before D/C Order can be placed): Home, Self Care Charges/Coding Visit Charges Inpatient E&M: 10922 Disch Hosp
== END 2022-01-13 10:04 | disposition home or self-care (01) ==
LOC: ED 12:48 → PCU 13:58
PROVIDERS: Internal Medicine Cardiovascular Disease; Admitting Provider Student in an Organized Health Care Education/Training Program; Emergency Provider Emergency Medicine; PCP Family Medicine; Visit Provider Student in an Organized Health Care Education/Training Program
DX: I42.8 Other cardiomyopathies (principal); I71.2 Thoracic aortic aneurysm, without rupture; Q23.1 Congenital insufficiency of aortic valve; I10 Essential (primary) hypertension; F17.210 Nicotine dependence, cigarettes, uncomplicated; R42 Dizziness and giddiness; R93.1 Abnormal findings on diagnostic imaging of heart and coronary circulation; Z79.899 Other long term (current) drug therapy; Z79.84 Long term (current) use of oral hypoglycemic drugs
CPT/HCPCS: 36415; 71045; 71275; 80048; 80061; 80076; 82962; 84443; 84484; 85025; 85610; 85730; 93005; 93306; 93454; 93975; 99152; 99153; 99218; 99283; 99406; J7030; Q9957; A4216; C1769; C1894; G0378; Q9967

== ENCOUNTER 2023-02-22 03:54 | Emergency (ER) | payer OTHER, SELFPAY ==
[2023-02-22 03:55] VITALS: BP 123/89; PULSE 82; RESP 15; TEMP 36.1; O2SAT 97; BMI 23.1
[2023-02-22 03:58] VITALS: BMI 22.6
--- NOTE | 2023-02-22 04:13 | EX.ED.DYSGE1 ---
HPI History of Present Illness Chief Complaint: Constipation Informant: patient Narrative Narrative: 47-year-old male presenting to the emergency room with constipation. Patient states he has not had bowel movement for 2 days. This evening around 2030 hrs. before he went to work he felt like he needed to have a bowel movement. He states he has tried multiple times and has been unable to go. He states he is having difficulty urinating and feels exhausted from straining. He has had some bright red blood per rectum. States this is never happened to him before normally he has a bowel movement once a day and it is formed but not hard. [facility] Medical History Abnormal echocardiogram Bicuspid aortic valve Cardiomyopathy Dysmetabolic syndrome X (12/24/09) Essential hypertension Thoracic aortic aneurysm Tobacco use Traumatic pneumothorax (~1999) Type 2 diabetes mellitus without complication Home Medications metformin 500 mg tablet,extended release 24 hr 1 tab PO DAILY diabetes 01/11/22 [History Last Taken Unknown] aspirin 81 mg chewable tablet 81 mg PO DAILY@0800 #30 tabs 01/13/22 [Rx Last Taken Unknown] metoprolol succinate 100 mg tablet,extended release 24 hr 100 mg PO DAILY 01/28/22 [History Last Taken Unknown] amlodipine 10 mg tablet 10 mg PO DAILY blood pressure 12/15/22 [History Last Taken Unknown] empagliflozin 10 mg tablet 10 mg PO DAILY 12/15/22 [History Last Taken Unknown] sacubitril 49 mg-valsartan 51 mg tablet (Entresto) 1 tab PO BID #60 tabs 12/15/22 [Rx Last Taken Unknown] terbinafine HCl 250 mg tablet 250 mg PO DAILY 12/15/22 [History Last Taken Unknown] spironolactone 25 mg tablet 25 mg PO DAILY #90 tabs 01/09/23 [Rx Last Taken Unknown] magnesium citrate 300 ml PO X1 PRN constipation #2 BOTTLES 02/22/23 [Rx Last Taken Unknown] Allergy/AdvReac Type Severity Reaction Status Date / Time lisinopril Allergy Other Verified 12/15/22 15:53 Family History Mother Diabetes Father Cancer Lung Social History Smoking Status: Current every day smoker tobacco type: cigarettes alcohol intake: current alcohol intake frequency: a few times a month Alcohol type: beer substance use type: does not use ROS ROS ED Constitutional Constitutional ED: Denies chills or weight loss Eyes Eyes: Denies change in vision or diplopia ENT ENT ED: Denies ear pain, rhinorrhea or sore throat Cardiovascular Cardiovascular: Denies chest pain, orthopnea, palpitations or racing heartbeat Respiratory/Chest Respiratory/Chest: Denies cough, dyspnea or orthopnea Gastrointestinal Gastrointestinal: Reports abdominal pain and constipation; Denies diarrhea, nausea or vomiting Genitourinary Genitourinary ED: Reports other Details: Unable to void ; Denies dysuria, hematuria or urinary frequency Musculoskeletal Musculoskeletal: Denies arthralgias or myalgias Integumentary Denies abscess or rash Neurologic Neurologic: Denies headache(s) or weakness Psychiatric Psychiatric: Denies anxiety, depression, suicidal ideation or suicidal thoughts Endocrine Endocrinology: Denies polydipsia, polyphagia or polyuria Allergic/Immunologic Allergic/Immunologic ED: Denies mouth swelling, tongue swelling or urticaria EXAM Physical Exam Const Vital Signs: 02/22/23 03:55 02/22/23 06:55 Temperature 97 F L Temperature Source Temporal Pulse Rate 82 57 L Respiratory Rate 15 15 Blood Pressure 123/89 H 153/110 H Blood Pressure Mean 100 124 Pulse Ox 97 97 Oxygen Delivery Method Room Air Room Air Positive well nourished and well developed General Appearance ED: well developed HEENT Reports normocephalic, head/scalp atraumatic and moist mucous membranes Eyes PERRL and EOMs intact bilaterally Neck no lymphadenopathy, supple and no JVD Resp normal respiratory effort and clear to auscultation bilaterally Cardio regular rate, regular rhythm and no murmurs GI normal to inspection, nondistended, normoactive bowel sounds and non-tender Palpation: soft Back/Spine no CVA tenderness and normal ROM Extremity normal to inspection General Extremety ED: Negative for edema General Extremity: Negative for edema Neuro oriented x3 and CN's II-XII intact bilaterally Sensorium / Orientation: alert Motor Exam: strength 5/5 throughout Psych mental status grossly normal Mood & Affect: Negative for depressed or tearful Skin no rashes or lesions noted and no wounds MDM MDM MDM Narrative Medical decision making narrative: My interpretation of the plain film of the abdomen is constipation. On rectal examination there is some firmer stool but located at the tip of my finger. He does seem to have a palpable bladder and on abdominal ultrasound performed by this physician at the bedside he does have a distended bladder up to about 2 fingerbreadths below the umbilicus. I spoke with the patient regarding the need for possible bladder decompression and soapsuds enema. We are going to try soapsuds enema first and if no success then we will decompress the bladder with a catheter. He will also be need to be doing some magnesium citrate. Patient states he was able to urinate and was able to get some stool out. I suspect that he has significant more stool in him but he states he is doing better. Abdomen encourage him to do another enema at home as well as a couple bottles of magnesium citrate. She states that he does feel that his bladder is decompressed that he was able to urinate completely Radiography Diagnostic Testing: Clinical Impression(s) from Imaging Studies KUB X-Ray 02/22/23 04:21 IMPRESSION: Large colonic stool burden as can be seen with constipation. Non-obstructive bowel gas pattern. Electronically Signed: Wesly Mcdonald MD at 5:13 EDT , Discharge Plan Triage Chief Complaint: Constipation ED Provider: Scott Brar Dx/Rx/DC Orders Clinical Impression: Acute constipation, Acute urinary retention Instructions: ED Constipation (Adult), ED Fecal Impaction, Treated, ED Urinary Retention, Male Prescriptions: New magnesium citrate Solution 300 ml PO X1 PRN (Reason: constipation) Qty: 2 0RF No Action metoprolol succinate 100 mg tablet extended release 24 hr 100 mg PO DAILY empagliflozin 10 mg tablet 10 mg PO DAILY terbinafine HCl 250 mg tablet 250 mg PO DAILY amlodipine 10 mg tablet 10 mg PO DAILY Patient Comments: TAKE 1 TABLET BY MOUTH EVERY DAY Entresto 49-51 mg tablet 1 tab PO BID Qty: 60 11RF metformin 500 mg tablet extended release 24 hr 1 tab PO DAILY Patient Comments: TAKE 1 TABLET BY MOUTH EVERY DAY WITH BREAKFAST aspirin 81 mg Tablet,Chewable 81 mg PO DAILY@0800 Qty: 30 2RF spironolactone 25 mg tablet 25 mg PO DAILY Qty: 90 3RF Primary Care Provider: Shamir Cha Referrals: Shamir Cha MD [Primary Care Provider] - 3-5 Days if not improving Activity Restrictions/Additional Instructions: It would benefit you to perform a another enema at home. You need to increase fluids in your diet (i.e. water) to help soften stool. You may need to begin a daily stool softener depending on how your bowels continue to progress.
--- NOTE | 2023-02-22 04:21 | RAD_ITS ---
INDICATION: constipation EXAMINATION/TECHNIQUE: X-RAY - XR Abdomen 1 View: 2 image AP abdomen COMPARISON: None FINDINGS: BOWEL GAS PATTERN: Nonspecific non-obstructive bowel gas pattern. No focal stomach or bowel distention. Large colonic stool burden from cecum to rectum. FREE AIR: Not well assessed on a supine view. ORGANOMEGALY: Not seen. CALCIFICATIONS: No concerning calcifications. LOWER CHEST: No acute pathology. BONES AND SOFT TISSUES: No acute pathology. RAD/Abdomen Single View IMPRESSION: Large colonic stool burden as can be seen with constipation. Non-obstructive bowel gas pattern. Electronically Signed: Wesly Mcdonald MD at 5:13 EDT ,
--- NOTE | 2023-02-22 06:06 | ED.RN ---
pt unable to tolerate accessing her port; port access kit, opened, but port not accessed. attempted iv access; lab work obtained, but no iv access. IM injections ordered.
[2023-02-22 06:55] VITALS: BP 153/110; PULSE 57; RESP 15; O2SAT 97
== END 2023-02-22 07:36 | disposition home or self-care (01) ==
LOC: ED 04:57
PROVIDERS: Emergency Provider Emergency Medicine; PCP Family Medicine; Visit Provider Emergency Medicine
DX: K59.00 Constipation, unspecified (principal); E11.9 Type 2 diabetes mellitus without complications; R33.9 Retention of urine, unspecified; F17.210 Nicotine dependence, cigarettes, uncomplicated; I10 Essential (primary) hypertension; Z79.82 Long term (current) use of aspirin; Z79.84 Long term (current) use of oral hypoglycemic drugs; Z79.899 Other long term (current) drug therapy
CPT/HCPCS: 74018; 99284